=== PATIENT | female | born 1995 | race Caucasian/White ===

== ENCOUNTER 2016-10-30 20:43 | Emergency (ER) | payer MEDICAID, OTHER ==
[~2016-10-30] VITALS: Ht 157.5 cm; Wt 75.5 kg
[2016-10-30 20:48] VITALS: Ht 157.5 cm; Wt 75.5 kg
--- NOTE | 2016-10-30 22:30 | RADRPT ---
PROCEDURE: US OB. CLINICAL INDICATION: Vaginal bleeding TECHNIQUE: Transabdominal views of the pelvis are available for review. COMPARISON: No prior studies are available for comparison. FINDINGS: There is a single intrauterine gestation with the crown-rump length measuring 1.3 cm, corresponding to a gestational age of 7 weeks and 4 days. The heart rate is noted at 171 bpm. The ovaries are not seen. There is no free fluid. RPTAT: AA IMPRESSION: Single live intrauterine with an estimated gestational age of 7 weeks and 4 days, based on ultrasound measurements. IHSAN based on ultrasound measurements is 06/14/17. .Eduardo Chavez MD, MD Date Time Electronically viewed and signed by .Eduardo Chavez MD, on 10/30/2016 22:29 .S/
--- NOTE | 2016-10-30 22:46 | ERD ---
ER Documentation Chief Complaint Date/Time DATE: 10/30/16 TIME: 22:43 Chief Complaint VAG BLEEDING ("NOAH HEAVY PINKISH") W/O ABD PAIN YESTERDAY, 7 WKS HPI This is a 21-year-old female who is 7-1/2 weeks by dates. The patient is having some spotting for the past couple days with 1 or 2 blood clots today. She is not having any cramps. The patient has had 3 sonograms this due to vaginal spotting and there has been an identified viable on sonogram. Patient is having no back pain no fever no nausea vomiting diarrhea. Currently she is having some mild spotting only ROS All systems reviewed and are negative except as per history of present illness. PMhx/Soc Medical and Surgical Hx: pt denies Medical Hx, pt denies Surgical Hx History of Surgery: No (DENIES MEDICAL AND SURGICAL HX.) Anesthesia Reaction: No Hx Neurological Disorder: No Hx Respiratory Disorders: No Hx Cardiac Disorders: No Hx Psychiatric Problems: No Hx Miscellaneous Medical Probl: No Hx Alcohol Use: Yes (OCCASIONALY) Hx Substance Use: No Hx Tobacco Use: Yes (OCCASIONALY) Smoking Status: Current some day smoker FmHx Family History: No coronary disease Physical Exam Vitals Vital Signs Date Time Temp Pulse Resp B/P Pulse Ox O2 Delivery O2 Flow Rate FiO2 10/30/16 20:48 98.4 97 18 124/63 98 Physical Exam Const: Well-developed, well-nourished Head: Atraumatic, normocephalic Eyes: Normal Conjunctiva, PERRLA, EOMI, normal sclera, no nystagmus ENT: Normal External Ears, Nose and Mouth, moist mucus membranes. Neck: Full range of motion. No meningismus, no lymphadenopathy. Resp: Clear to auscultation bilaterally, no wheezing, rhonchi, rales Cardio: Regular rate and rhythm, no murmurs, S1 S2 present Abd: Soft, non tender x 4, non distended. Normal bowel sounds, no guarding or rebound, no pulsitile abdominal masses or bruits Skin: No petechiae or rashes, no ecchymosis , no maculopapular rash Back: No midline or flank tenderness Ext: No cyanosis, or edema, FROM x 4, normal inspection, neurovascularly intact x 4 Neur: Awake and alert, STR 5/5 x 4, sensation intact x 4, no focal findings, cerebellum intact Psych: Normal Mood and Affect Procedures/MDM PROCEDURE: US OB. CLINICAL INDICATION: Vaginal bleeding TECHNIQUE: Transabdominal views of the pelvis are available for review. COMPARISON: No prior studies are available for comparison. FINDINGS: There is a single intrauterine gestation with the crown-rump length measuring 1.3 cm, corresponding to a gestational age of 7 weeks and 4 days. The heart rate is noted at 171 bpm. The ovaries are not seen. There is no free fluid. RPTAT: AA IMPRESSION: Single live intrauterine with an estimated gestational age of 7 weeks and 4 days, based on ultrasound measurements. IHSAN based on ultrasound measurements is 06/14/17. .Eduardo Chavez MD, MD Date Time Electronically viewed and signed by .Eduardo Chavez MD, MD on 10/30/2016 22: 29 .S/ CC: MONICA MORALES DO Patient has a live IUP he reviewed vaginally precautions with her She will follow up with her OB GEN Departure Diagnosis: Primary Impression: Threatened Condition: Stable Patient Instructions: Possible Miscarriage (Threatened ) MONICA MORALES DO October 30, 2016 22:46
[2016-10-30 23:01] VITALS: BP 122/65; PULSE 95; RESP 18; TEMP 98.4
== END 2016-10-30 23:01 | disposition home or self-care (01) ==
LOC: FTE 20:43
DX: O20.0 Threatened abortion (principal); F17.210 Nicotine dependence, cigarettes, uncomplicated; O99.331 Smoking (tobacco) complicating pregnancy, first trimester; Z3A.01 Less than 8 weeks gestation of pregnancy
CPT/HCPCS: 36415; 76801; 84702; 86900; 86901; Z7502